=== PATIENT | female | born 1975 | race Caucasian/White ===

== ENCOUNTER → 2023-08-20 13:43 | Outpatient (REF) | payer BC, SELFPAY | LOC: WDC 13:43 | PROVIDERS: ATTENDING PHYSICIAN Family Medicine; FAMILY PHYSICIAN Family Medicine | DX: Z12.31 Encounter for screening mammogram for malignant neoplasm of breast (principal) | CPT/HCPCS: 77063; 77067 ==

== ENCOUNTER → 2024-08-25 11:57 | Outpatient (REF) | payer BC, SELFPAY | LOC: WDC 11:57 | PROVIDERS: ATTENDING PHYSICIAN Advanced Practice Midwife; FAMILY PHYSICIAN Family Medicine | DX: Z12.31 Encounter for screening mammogram for malignant neoplasm of breast (principal) | CPT/HCPCS: 77063; 77067 ==

== ENCOUNTER → 2025-01-12 12:44 | Outpatient (REF) | payer BC, SELFPAY | LOC: RAD 12:44 | PROVIDERS: ATTENDING PHYSICIAN Advanced Practice Midwife; FAMILY PHYSICIAN Family Medicine | DX: N92.0 Excessive and frequent menstruation with regular cycle (principal) | CPT/HCPCS: 76830; 76856 ==

== ENCOUNTER → 2025-03-30 19:30 | Outpatient (REF) | payer BC, SELFPAY | LOC: MRI 3T 19:30 | PROVIDERS: ATTENDING PHYSICIAN Advanced Practice Midwife; FAMILY PHYSICIAN Family Medicine | DX: D21.9 Benign neoplasm of connective and other soft tissue, unspecified (principal) | CPT/HCPCS: 72197; A9575 ==